=== PATIENT | female | born 1995 | race Caucasian/White ===

== ENCOUNTER → 2019-09-29 | Outpatient (CLI) | payer SELFPAY | END | disposition home or self-care (01) | PROVIDERS: Referring Provider Obstetrics & Gynecology; Visit Provider Obstetrics & Gynecology | DX: Z12.4 Encounter for screening for malignant neoplasm of cervix (principal); Z11.3 Encounter for screening for infections with a predominantly sexual mode of transmission ==

== ENCOUNTER → 2019-10-14 15:22 | Outpatient (CLI) | payer SELFPAY ==
[2019-10-14 17:27] LABS: Color, Urine Yellow (Yellow); Glucose, Dipstick Normal (Normal); Ketone-Dipstick Negative (Negative); Leukocyte Esterase-Dipstick Negative /ul (Negative); Nitrite-Dipstick Negative (Negative); Occult Blood-Urine Negative /ul (Negative); Protein-Dipstick Negative (Negative); Urine Bilirubin Dipstick Negative (Negative); Urine Clarity Sl. Cloudy (Clear); Urine Urobilinogen Normal (Normal)
[2019-10-14 17:29] LABS: Absolute Lymphocyte Count 2.35 X10^3/uL (0.83-4.51); Absolute Neutrophil Count 6.4 X10^3/uL (2.0-7.7); Basophil# 0.05 X10^3/uL; Basophil% 0.5 % (0-1); Eosinophil# 0.04 X10^3/uL; Eosinophils% 0.4 % (0-5); Hematocrit 41.8 % (37-47); Hemoglobin 14.3 g/dL (12.0-15.0); Lymphocyte # 2.35 X10^3/ul (4.0); Lymphocyte % 24.5 % (19-41); Mean Corp Hgb Conc 34.2 g/dL (32-36); Mean Corpuscular Hgb 29.5 pg (27.0-32.0); Mean Corpuscular Volume 86.2 fL (81-99); Mean Platelet Vol. 9.6 fl (6.2-12.0); Monocyte% 7.3 % (0-10); NRBC Flagged by Analyzer 0 % (0-5); Neutrophil # 6.43 X10^3/uL (2.7-7.7); Platelet Count 308 K/mm3 (150-450); RBC Distribution Width CV 12.9 % (11.6-14.6); RBC Distribution Width SD 40.4 fl (35.1-43.9); Red Blood Count 4.85 M/mm3 (4.2-5.4); White Blood Count 9.6 K/mm3 (4.4-11.0)
[2019-10-14 17:52] LABS: Thyroid Stim Hormone (TSH) 1.36 uIU/mL (0.358-3.74)
[2019-10-15 09:55] LABS: HIV - WCH Non-Reactive (Nonreactive); Hepatitis B Surface Antigen Non-Reactive (Nonreactive); Hepatitis C Antibody Non-Reactive (Nonreactive)
[2019-10-15 11:52] LABS: Rubella IgG < 0.2 IU/mL
[2019-10-21 02:23] LABS: Prenatal RPR NONREACTIVE (NONREACTIVE)
== END ==
PROVIDERS: Visit Provider Obstetrics & Gynecology
DX: Z34.81 Encounter for supervision of other normal pregnancy, first trimester (principal)
CPT/HCPCS: 36415; 81002; 84443; 85025; 86703; 86762; 86803; 87340

== ENCOUNTER → 2020-01-06 15:48 | Outpatient (CLI) | payer SELFPAY | PROVIDERS: Visit Provider Obstetrics & Gynecology | DX: O36.5990 Maternal care for other known or suspected poor fetal growth, unspecified trimester, not applicable or unspecified (principal); O41.00X0 Oligohydramnios, unspecified trimester, not applicable or unspecified; Z3A.00 Weeks of gestation of pregnancy not specified | CPT/HCPCS: 36415 ==

== ENCOUNTER → 2020-01-27 10:27 | Outpatient (CLI) | payer SELFPAY ==
[2020-01-27 11:08] LABS: Hematocrit 37.3 % (37-47); Hemoglobin 12.9 g/dL (12.0-15.0); Mean Corp Hgb Conc 34.6 g/dL (32-36); Mean Corpuscular Hgb 31.2 pg (27.0-32.0); Mean Corpuscular Volume 90.3 fL (81-99); Mean Platelet Vol. 10.7 fl (6.2-12.0); Platelet Count 215 K/mm3 (150-450); RBC Distribution Width CV 12.4 % (11.6-14.6); RBC Distribution Width SD 41.1 fl (35.1-43.9); Red Blood Count 4.13 M/mm3 (4.2-5.4); White Blood Count 9.3 K/mm3 (4.4-11.0)
[2020-01-27 11:16] LABS: Creatinine, Urine (random) < 13.00 mg/dL (NO RANGE EST.); Protein, Urine (Random) < 6.0 mg/dL (<11.9)
[2020-01-27 11:27] LABS: ALB/GLOB Ratio 0.8 RATIO (0.9-2.4); AST(SGOT) 24 U/L (15-37); Alanine Aminotransfer ALT/SGPT 37 U/L (13-56); Albumin, Serum 3.1 g/dL (3.2-5.0); Alkaline Phosphatase 68 U/L (45-117); Anion Gap 6 (5-15); BUN 10 mg/dL (7-18); BUN/Creat Ratio 16.8 RATIO (10-20); Calcium,Total 8.8 mg/dL (8.5-10.1); Chloride 105 mmol/L (98-107); EST Glomerular Filtration Rate 130 mL/min (>60); Est Glom Filt Rate - Afr Amer 157 mL/min (>60); Globulin 4.1 g/dL (2.2-4.2); Glucose 75 mg/dL (74-106); LDH 192 U/L (84-246); Potassium 4.2 mmol/L (3.5-5.1); Protein, Total 7.2 g/dL (6.4-8.2); Sodium Level 137 mmol/L (136-145); Uric Acid 5.1 mg/dL (2.6-6.0)
== END ==
PROVIDERS: Visit Provider Obstetrics & Gynecology
DX: O36.5921 Maternal care for other known or suspected poor fetal growth, second trimester, fetus 1 (principal); O26.892 Other specified pregnancy related conditions, second trimester; R03.0 Elevated blood-pressure reading, without diagnosis of hypertension; Z3A.00 Weeks of gestation of pregnancy not specified
CPT/HCPCS: 36415; 80053; 82570; 83615; 84156; 84550; 85027

== ENCOUNTER 2020-02-05 12:54 | Outpatient (CLI) | payer SELFPAY ==
[2020-02-05 12:59] VITALS: BMI 28.5
[2020-02-05 13:23] VITALS: BP 147/78; PULSE 82; PULSE 88; TEMP 37.1; O2SAT 98
--- NOTE | 2020-02-07 20:00 | OB.TRI.PN_ITS ---
Progress Notes Date of Service: 02/05/20 Progress Note: S: Reports not feeling any FM and unable to find FHR at home with doppler O: RN unable to find FHR A/P: at 24 weeks gestation with known severe oligo and IUGR Dr. Chand at bedside to perform US for FHR check, FHR has ceased IUFD confirmed per attending Patient and would like to talk with [facility] about possibly delivering in [place] or in [place] Plans to do full genetic screening To call M office tomorrow with decision made
== END 2020-02-05 14:15 | disposition home or self-care (01) ==
LOC: WPOUT 12:56 → OBT 12:56
PROVIDERS: Visit Provider Obstetrics & Gynecology
DX: O36.4XX0 Maternal care for intrauterine death, not applicable or unspecified (principal); O41.02X0 Oligohydramnios, second trimester, not applicable or unspecified; O36.5920 Maternal care for other known or suspected poor fetal growth, second trimester, not applicable or unspecified; Z3A.24 24 weeks gestation of pregnancy
CPT/HCPCS: 76815; 99218; G0378

== ENCOUNTER 2020-02-09 18:55 | Inpatient (IN) | payer SELFPAY ==
[2020-02-09 19:24] VITALS: BMI 27.8
--- NOTE | 2020-02-09 19:55 | HP.PCM_ITS ---
- Problem List (1) 24 weeks gestation of Status: Acute (2) demise, greater than 22 weeks, antepartum Status: Acute Qualifiers: Fetus number: single or unspecified fetus Qualified Code(s): O36.4XX0 - Maternal care for intrauterine , not applicable or unspecified History Date of Admission: 02/09/20 Final SHERRI: 05/21/20 Final SHERRI Source: US <20 weeks Gestational age: 25 Weeks and 3 Days History of this : This is a 24 year-old, G [1], P [0], at 25.3 weeks gestational age. demise with cessation of heart tones 02-05-20 at 24w6d. Here for IOL. Allergies No Known Allergies Allergy (Verified 02/09/20 19:41) Home Medications: Home Medications Magnesium 30 mg PO DAILY 02/09/20 [place]-3 Fatty Acids [Fish Oil] 500 mg PO DAILY 02/09/20 Pnv No.95/Ferrous Fum/Folic AC [ Multivitamin Tablet] 1 ea PO DAILY 02/09/20 Alcohol: None Number of Fetus(es): 1 History Past Pregnancies: Past Pregnancies: None Labs: 10-13-21: TSH 1.36, A positive with negative ab screen, Rubella <0.2, HIV nonreactive, HEP B nonreactive, HEP C nonreactive, RPR nonreactive 01-06-20 Diagnosis of IUGR with severe Oligo at 3cm, female fetus 01-06-20 MaterniT-21 negative for Trisomy 21, negative for Trisomy 18 and negative for Trisomy 13, indicating male fetus Expected Delivery Method: Spontaneous Vaginal Number of Visits: 6 Review of Systems Constitutional: Denies: Chills, Fever, Weight Change HEENT: Denies: Head Aches, Sinus Congestion, Sinus Drainage Cardiovascular: Denies: Chest Pain, Palpitations Respiratory: Denies: Cough, Shortness of breath at rest, Sputum production Gastrointestinal: Denies: Abdominal Pain, Nausea, Vomiting Genitourinary: Denies: Dysuria Musculoskeletal: Denies: Joint Pain, Joint Tenderness Skin: Denies: Rash, Wounds Neurological: Denies: Numbness, Tingling, Focal weakness Psychiatric: Denies: Anxiety, Depression, Homicidal Ideations, Suicidal Ideations Hematologic/ Lymphatic: Denies: Easy Bruising, Easy Bleeding Physical Exam General: Alert, Oriented x3, No apparent distress HEENT: Atraumatic, Normocephalic. Negative for: Thyromegaly, Lymphadenopathy Cardiovascular: Regular rate, Regular Rhythm Lungs: Clear to auscultation Abdomen: Bowel Sounds Present, Gravid Neurological: Deep Tendon Reflexes 2+/4 and Symmetrical, Neuro grossly intact FARE ENFORCEMENT OFFICER: Normal external genitalia. Negative for: Vulvar lesions Estimated gestational size: Small for gestational age Assessment/Plan All Active Problems 24 weeks gestation of (Acute) demise, greater than 22 weeks, antepartum (Acute) A/P: This is a 24 year-old, G [1], P [0], at 25w3d gestational age with demise at 24w6d confirmed with US performed by Dr. Chand attending MD. IUGR and Oligo dx 6--20, with female appearance on US MaterniT-21 testing indication male fetus is negative for Trisomies 13, 18 and 21 Cytotec 200mcg PO Q6H planned for IOL Pain management as appropriate Planning on full genetic testing on fetus Expect
[2020-02-09 20:14] VITALS: BP 131/79; PULSE 93; TEMP 37.2; O2SAT 100
[2020-02-09 20:32] LABS: Absolute Lymphocyte Count 3.16 X10^3/uL (0.83-4.51); Absolute Neutrophil Count 7.6 X10^3/uL (2.0-7.7); Basophil# 0.04 X10^3/uL; Basophil% 0.3 % (0-1); Eosinophil# 0.04 X10^3/uL; Eosinophils% 0.3 % (0-5); Hematocrit 36.8 % (37-47); Hemoglobin 12.9 g/dL (12.0-15.0); Lymphocyte # 3.16 X10^3/ul (4.0); Lymphocyte % 26.7 % (19-41); Mean Corp Hgb Conc 35.1 g/dL (32-36); Mean Corpuscular Hgb 31.5 pg (27.0-32.0); Mean Corpuscular Volume 89.8 fL (81-99); Mean Platelet Vol. 10.1 fl (6.2-12.0); Monocyte% 7.6 % (0-10); NRBC Flagged by Analyzer 0 % (0-5); Neutrophil # 7.64 X10^3/uL (2.7-7.7); Neutrophil % 64.7 % (47-70); Platelet Count 280 K/mm3 (150-450); RBC Distribution Width SD 39.1 fl (35.1-43.9); White Blood Count 11.8 K/mm3 (4.4-11.0)
[2020-02-09] MEDS: miSOPROStol 200 MCG Tablet PO (20:45)
[2020-02-09 21:47] VITALS: TEMP 37.1
[2020-02-09 21:48] VITALS: BP 140/89; PULSE 100; O2SAT 97
[2020-02-09 22:36] VITALS: BP 131/67; PULSE 98
[2020-02-10] VITALS (43 sets, daily range): BP systolic 106–164; BP diastolic 58–97; PULSE 72–110; TEMP 36.6–38; O2SAT 86–100
--- NOTE | 2020-02-10 | PLAC_PTH ---
PATIENT: MLE YUN LOC: WP U#:[id number] AGE/SX: 24/F ROOM: WP021 RE02/09/[address]: Natacha Mcbride CNM : 1995 BED: 1 DIS: 02/11/2020 SPEC #: [id number] RECD: 02/11/20 08:44 STATUS: CADEN RENandini #: [id number] YANA: 02/10/20 00:[address]: Natacha Mcbride DEPT: SURGICAL PATHOLOGY RECD BY: David March ENTERED: 02/11/20 08:44 SP TYPE: PLACENTA OTHR DR: No Primary Care Phys Tissues: Placenta, NOS Procedures: Surgery Specimen Level V HEADER OPERATION: Vaginal delivery PRE-OP DIAGNOSIS: demise at 25 week gestation TISSUE SUBMITTED: Placenta MICROSCOPIC DIAGNOSIS Weinstein placenta (100 gm): Umbilical cord - trivascular with no inflammation. Placental membranes - mild acute chorionitis and deciduitis. Placental disc - organizing blood clot, increased intraparenchymal fibrin plaques and acute deciduitis. AM:bridget 02/14/20 MICROSCOPIC DESCRIPTION Slides are reviewed. GROSS DESCRIPTION SPECIMEN: PLACENTA / CLINICAL INFORMATION: A. Weight: Not noted B. Gestational Age: 25 weeks C. Sex: Male PLACENTAL WEIGHT (POST FIXATION): 100 gm PLACENTAL DIMENSIONS: 8 x 7 x 2.5 cm PLACENTAL SHAPE: Usual ovoid PLACENTAL WEIGHT FOR GESTATIONAL AGE: Within 10-99th percentile MEMBRANES - Present A. Insertion: Marginal B. Site of rupture from edge: The membranes are fragmented and distance of rupture cannot be identified. A portion of placental tissue is also noted in the area of membrane. C. Color of membrane: Mcgee-mcdaniel D. Abnormalities: None UMBILICAL CORD - Present A. Color: Mcgee-mcdaniel B. Insertion: Marginal C. Length: 23 cm, macerated D. Diameter: 0.9 cm E. Number of vessels: Could not be identified grossly. F. Abnormalities: None PLACENTAL DISC - Present A. Color of surface: Mcgee-mcdaniel B. surface abnormalities: A focal area of submembranous blood clots is noted. C. Maternal cotyledons: Maternal surface is pink-mcgee without obvious cotyledons. D. Attached retro placental clot: No clot E. Cut surface: Dark red and spongy F. Lesions: None G. Separate clot: Absent A section is submitted for Anora studies by Dr. Egan. SECTIONS SUBMITTED: 1. Membrane roll 2. Cord, maternal end, portion of membrane with placental tissue 3. Cord, end inked black 4. Placental disc, and maternal surfaces 5. Placental disc, and maternal surfaces 6. Placental disc, and maternal surfaces Anup 02/11/20 TC:2 CPT: 51050 ADDENDUM ADDENDUM ADDENDUM ADDENDUM ADDENDUM ADDENDUM ADDENDUM ADDENDUM ADDENDUM 03/01/2020 09:26 ADDENDUM 03/09/2020 08:56 ADDENDUM 03/01/2020 09:26 ADDENDUM 03/01/2020 09:26 ADDENDUM 03/01/2020 09:26 ADDENDUM 03/01/2020 09:26 ANORA MICROARRAY CHROMOSOME ANALYSIS WITH PARENTAL SUPPORT RESULT: Maternal cell contamination MICROARRAY RESULT: N/A CLINICAL INTERPRETATION: Maternal cell contamination was detected. Insufficient DNA detected for analysis. Please see complete report in e-charge or EMR ANORA MICROARRAY CHROMOSOME ANALYSIS WITH PARENTAL SUPPORT RESULT: Normal male MICROARRAY RESULT: arr(122)x2,(XY)x1 CLINICAL INTERPRETATION: Normal male result. Please see complete report in e-charge or EMR
[2020-02-10] MEDS: miSOPROStol 200 MCG Tablet PO ×3 (02:45→13:46)
--- NOTE | 2020-02-10 08:36 | PN.OBGYN_ITS ---
Patient Problems: Active and Suspected Problems 24 weeks gestation of (Acute) demise, greater than 22 weeks, antepartum (Acute) Subjective: Doing okay, but just feels numb everywhere. Hasn't really settled in that her baby is gone yet. Mild cramping just started an hour ago and is planning pain medication. Denies any concerns at this time. Objective: VSS. Second dose of Cytotec given and cramping has started. - Physical Exam Vitals/I&O's: Vital Signs Temp Pulse BP Pulse Ox 98.2 F 83 138/88 H 99 02/10/20 07:40 02/10/20 07:40 02/10/20 07:40 02/10/20 07:40 Weight: 66.86 kg Body Mass Index (BMI) 27.8 General: Alert, Oriented x3, Cooperative HEENT: Atraumatic, PERRLA, EOMI, Normocephalic Neck: Supple, No JVD, Negative Carotid Bruits Lungs: Clear to auscultation, Normal air movement Cardiovascular: Regular rate, No murmurs Abdomen: Bowel Sounds Present, Soft, Non Tender Extremities: No edema, Capillary Refill Less than 3 Seconds Skin: No rashes, No breakdown Musculoskeletal: No Tenderness to Palpation of Joints or Extremities Neurological: Cranial nerves II-XII grossly intact Psych/Mental Status: Normal Affect, Appropriate Laboratory Results 02/09/20 20:00: COVID-19 (WILIAM) Negative 02/09/20 20:10: WBC 11.8 H, RBC 4.10 L, Hgb 12.9, Hct 36.8 L, MCV 89.8, MCH 31.5, MCHC 35.1, RDW Std Deviation 39.1, RDW Coeff of Antony 12.0, Plt Count 280, MPV 10.1, Immature Gran % (Auto) 0.400, Neut % (Auto) 64.7, Lymph % (Auto) 26.7, M[place]inley % (Auto) 7.6, Eos % (Auto) 0.3, Baso % (Auto) 0.3, Absolute Neuts (auto) 7.6, Absolute Lymphs (auto) 3.16, Nucleated RBC % 0 02/09/20 20:10: Blood Type A POSITIVE, Antibody Screen NEGATIVE Current Medications Acetaminophen (Tylenol) 325 - 650 mg PO Q4H PRN PRN PRN Reason: Pain Score 1-3/10 Al Hydroxide/Mg Hydroxide (Mylanta Ii) 15 - 30 ml PO Q4H PRN PRN PRN Reason: INDIGESTION Citric Acid/Sodium Citrate (Bicitra) 30 ml PO X1 PRN PRN Reason: Section Fentanyl Citrate (Sublimaze (100mcg Ampule)) 25 - 50 mcg IV Q2H PRN PRN PRN Reason: Pain Score 4-10/10 Lactated Ringer's () 500 mls @ 999 mls/hr IV .Q31M PRN PRN Reason: Epidural Lactated Ringer's () 500 mls @ 999 mls/hr IV .Q31M PRN PRN Reason: Corrective Measures Lactated Ringer's () 1,000 mls @ 50 mls/hr IV .Q20H SOL Last Admin: 02/09/20 21:43 Dose: Not Given Documented by: Misoprostol (Cytotec) 200 mcg PO Q6H SOL Ondansetron HCl (Zofran) 4 mg IV Q4H PRN PRN PRN Reason: NAUSEA Prochlorperazine Edisylate (Compazine Iv) 10 mg IV Q6H PRN PRN PRN Reason: NAUSEA Sodium Chloride () 10 - 40 ml IV X1 PRN PRN Reason: SALINE FLUSH Medical Necessity - Tobacco Use Smoking Status: Never smoker Assessment/Plan All Active Problems 24 weeks gestation of (Acute) demise, greater than 22 weeks, antepartum (Acute) A/P: IOL with Cytotec for IUFD at bedside and couple is tolerating well, emotional support given Discussion on genetic testing on baby that is offered as well as autopsy and placenta can be sent To eat breakfast and will get third dose of Cytotec Plans IV pain medication or epidural when painful Expect
[2020-02-10] MEDS: 0.9% Saline Lock 10 ML Syringe IV ×2 (13:46→22:47)
[2020-02-10] MEDS: Acetaminophen 325 MG Tablet PO (14:17)
--- NOTE | 2020-02-10 16:17 | PCM.PN.OB ---
Patient Problems: Active and Suspected Problems 24 weeks gestation of (Acute) demise, greater than 22 weeks, antepartum (Acute) Subjective: Cramping is a 2/10, but okay with Tylenol and a heating pad. Almost continuous cramps, can't tell if having contractions or not. Objective: VSS. - Physical Exam Vitals/I&O's: Vital Signs Temp Pulse BP Pulse Ox 98.4 F 80 141/83 H 98 02/10/20 15:39 02/10/20 15:39 02/10/20 15:38 02/10/20 15:39 Weight: 66.86 kg Body Mass Index (BMI) 27.8 General: Alert, Oriented x3, Cooperative HEENT: Atraumatic, PERRLA, EOMI, Normocephalic Neck: Supple, No JVD, Negative Carotid Bruits Lungs: Clear to auscultation, Normal air movement Cardiovascular: Regular rate, No murmurs Abdomen: Bowel Sounds Present, Soft, Non Tender Extremities: No edema, Capillary Refill Less than 3 Seconds Skin: No rashes, No breakdown Musculoskeletal: No Tenderness to Palpation of Joints or Extremities Neurological: Cranial nerves II-XII grossly intact Psych/Mental Status: Normal Affect, Appropriate Laboratory Results 02/09/20 20:00: COVID-19 ([facility]ILIAM) Negative 02/09/20 20:10: WBC 11.8 H, RBC 4.10 L, Hgb 12.9, Hct 36.8 L, MCV 89.8, MCH 31.5, MCHC 35.1, RDW Std Deviation 39.1, RDW Coeff of Antony 12.0, Plt Count 280, MPV 10.1, Immature Gran % (Auto) 0.400, Neut % (Auto) 64.7, Lymph % (Auto) 26.7, [place] % (Auto) 7.6, Eos % (Auto) 0.3, Baso % (Auto) 0.3, Absolute Neuts (auto) 7.6, Absolute Lymphs (auto) 3.16, Nucleated RBC % 0 02/09/20 20:10: Blood Type A POSITIVE, Antibody Screen NEGATIVE Current Medications Acetaminophen (Tylenol) 325 - 650 mg PO Q4H PRN PRN PRN Reason: Pain Score 1-3/10 Last Admin: 02/10/20 14:17 Dose: 650 mg Documented by: Al Hydroxide/Mg Hydroxide (Mylanta Ii) 15 - 30 ml PO Q4H PRN PRN PRN Reason: INDIGESTION Citric Acid/Sodium Citrate (Bicitra) 30 ml PO X1 PRN PRN Reason: Section Fentanyl Citrate (Sublimaze (100mcg Ampule)) 25 - 50 mcg IV Q2H PRN PRN PRN Reason: Pain Score 4-10/10 Lactated Ringer's () 500 mls @ 999 mls/hr IV .Q31M PRN PRN Reason: Epidural Lactated Ringer's () 500 mls @ 999 mls/hr IV .Q31M PRN PRN Reason: Corrective Measures Lactated Ringer's () 1,000 mls @ 50 mls/hr IV .Q20H [facility] Last Admin: 02/09/20 21:43 Dose: Not Given Documented by: Misoprostol (Cytotec) 200 mcg PO Q4H [facility] Last Admin: 02/10/20 13:46 Dose: 200 mcg Documented by: Ondansetron HCl (Zofran) 4 mg IV Q4H PRN PRN PRN Reason: NAUSEA Prochlorperazine Edisylate (Compazine Iv) 10 mg IV Q6H PRN PRN PRN Reason: NAUSEA Sodium Chloride () 10 - 40 ml IV X1 PRN PRN Reason: SALINE FLUSH Last Admin: 02/10/20 13:46 Dose: 10 ml Documented by: Medical Necessity - Tobacco Use Smoking Status: Never smoker Assessment/Plan All Active Problems 24 weeks gestation of (Acute) demise, greater than 22 weeks, antepartum (Acute) A/P: 1/thick/high tunneling about 40% Cramping 2/10 pain Understands all pain management options available Cytotec 200mcg Q4H, patient to decide if wanting to go up to 400mcg
[2020-02-10] MEDS: Lactated Ringers 500 ML 999 ML IV (16:33)
[2020-02-10] MEDS: Lactated Ringers 1,000 ML 50 ML IV (17:04)
[2020-02-10] MEDS: fentaNYL-bupivacaine (epidural) 100 ML BAG EPIDURAL (17:37)
[2020-02-10] MEDS: miSOPROStol 200 MCG Tablet 400 MCG VAGINAL (17:50)
--- NOTE | 2020-02-10 21:36 | OP.PCM_ITS ---
Problem List (1) 24 weeks gestation of Status: Acute (2) demise, greater than 22 weeks, antepartum Status: Acute Qualifiers: Fetus number: single or unspecified fetus Qualified Code(s): O36.4XX0 - Maternal care for intrauterine , not applicable or unspecified Vaginal Delivery Maternal Presentation: Medically Indicated Induction Presented for IOL for IUFD Method of Induction: Cytotec Medical Reason for Induction: demise Amniotic Membrane Rupture Type: - - after delivery Final SHERRI: 05/21/20 Final SHERRI Source: US <20 weeks Gestational age: 25 Weeks and 4 Days Date of Procedure: 02/10/20 Pre-Operative Diagnosis: IOL for demise Post-Operative Diagnosis: S/P Vaginal Delivery Surgery/ Procedure Performed: Spontaneous Vaginal Delivery Anesthesiologist: Kika Dixon Type of Anesthesia: Epidural Description of Procedure: At 210 typewriter operator automatic received a call from RN that upon assessment of patient's vaginal bleeding, head was starting to deliver. Upon arrival, gestational sac at the introitus. With one push, fetus was delivered in the gestational sac. Manual removal of two small clots from uterus which firmed well. Patient and request that typewriter operator automatic remove from gestational sac for sac to be sent to pathology for Anora testing. Using tweezers, slight tear made in the sac which peeled easily to reveal a male fetus with umbilical cord attached. Umbilical cord cut from fetus to send placenta with cord intact to lab. Male fetus inspected on a baby powdered blanket, hat placed and wrapped in swaddle provided by couple. Fetus handed to patient in bed. Patient still comfortable with epidural in and will recover with baby before discharge. EBL <50mL Presentation: Vertex Placental Delivery Description: Spontaneous Placenta Disposition: Sent to Pathology Cord Entanglement: None Estimated Blood Loss: 50 Infant A gender: Male Episiotomy Description: None Laceration: None
--- NOTE | 2020-02-10 21:53 | DCINST_ITS ---
Discharge Diet: No Restrictions Discharge Activity: Return to Normal Activity, May not drive while taking narcotic pain medications., May Shower May resume sexual activity in: 4-6 weeks Additional Activity Instructions:: Nothing in the vagina for 4-6 weeks. You may return to work/school in 6 weeks. Call your doctor if your incision/area has: Continuous Slow Oozing, Sudden Increased Bleeding, Increased Pain/ Swelling, Increased Redness, Foul Smelling Discharge Additional Instructions: If you experience any of the following, contact your healthcare provider. * Bleeding that soaks a pad every hour for 2 hours * Fever 100.4 or higher * Unrelieved incision or abdominal pain * Swelling, redness, discharge or bleeding from your incision or episiotomy site * Your incision begins to separate * Problems urinating (including inability to urinate or burning while urinating). * Visual changes * Severe headache * Flu-like symptoms * Pain or redness in one of both of your breasts * Pain, warmth, tenderness or swelling in your legs, especially the calf area * Frequent nausea and vomiting * Symptoms of depression or anxiety If you experience any of the following, call 911 or go to the nearest Emergency Room. * Chest pain * Problems breathing * Seizure activity * Partial or complete paralysis of a body part, slurred speech, weakness or drooping of the face, or a sudden inability to walk or hold your balance Allergies/Adverse Reactions: Allergies No Known Allergies Allergy (Verified 02/09/20 19:41) Medications to take at Discharge Magnesium 30 mg PO DAILY 02/09/20 [place]-3 Fatty Acids [Fish Oil] 500 mg PO DAILY 02/09/20 Pnv No.95/Ferrous Fum/Folic AC [ Multivitamin Tablet] 1 ea PO DAILY 02/09/20 Please Follow Up With: Natacha Mcbride CNM When: Call to make an appointment with your CNM for a 2 week telehealth visit and a routine 6 week visit. If signs of depression to call immediately! Primary Care Physician: Care Physician,No Primary [Primary Care Provider] - Test Results: Test results from this visit will be discussed in further detail at your follow- up appointment, if applicable.
[2020-02-10] MEDS: Ibuprofen 600 MG Tablet PO (23:04)
[2020-02-11] VITALS (10 sets, daily range): BP systolic 123–141; BP diastolic 70–84; PULSE 78–94; RESP 16; TEMP 36.6–36.8; O2SAT 95–99
--- NOTE | 2020-02-11 03:26 | NURSING ---
Infant weight 8 ounces or 0.225 kg and 9.5 in long
--- NOTE | 2020-02-11 03:38 | NURSING ---
Patient aware that she is non immune to Rubella. Patient declines MMR vaccine at this time.
[2020-02-11] MEDS: Ibuprofen 600 MG Tablet PO (07:55)
--- NOTE | 2020-02-11 08:32 | PCM.PN.OB ---
Patient Problems: Active and Suspected Problems 24 weeks gestation of (Acute) demise, greater than 22 weeks, antepartum (Acute) Subjective: Is doing fairly well today. Getting in last minute cuddles with the baby before the home comes. Feeling well physically and denies heavy bleeding or cramping. Will discharge late this morning. Objective: VSS. Fundus is firm, midline, u/3. Lochia rubra light. - Physical Exam Vitals/I&O's: Vital Signs Temp Pulse Resp BP Pulse Ox 98.1 F 88 16 128/84 H 99 02/11/20 07:57 02/11/20 07:57 02/11/20 07:57 02/11/20 07:57 02/11/20 07:57 Oxygen Delivery Method Room Air Weight: 66.86 kg Body Mass Index (BMI) 27.8 Intake and Output for Last 24 Hours 02/09/20 02/10/20 02/11/20 23:59 23:59 23:59 Intake Total 2077.50 / 2077.50 Output Total 2300 / 2300 1700 / 1700 Balance -222.50 / -222.50 -1700 / -1700 General: Alert, Oriented x3, Cooperative HEENT: Atraumatic, PERRLA, EOMI, Normocephalic Neck: Supple, No JVD, Negative Carotid Bruits Lungs: Clear to auscultation, Normal air movement Cardiovascular: Regular rate, No murmurs Abdomen: Bowel Sounds Present, Soft, Non Tender Extremities: No edema, Capillary Refill Less than 3 Seconds Skin: No rashes, No breakdown Musculoskeletal: No Tenderness to Palpation of Joints or Extremities Neurological: Cranial nerves II-XII grossly intact Psych/Mental Status: Normal Affect, Appropriate Current Medications Acetaminophen (Tylenol) 1,000 mg PO Q8H PRN PRN PRN Reason: Pain Score 1-3/10 Bisacodyl (Dulcolax) 10 mg RECTAL UD PRN PRN Reason: If no BM Dibucaine (Dibucaine) 1 applic TOPICAL TID PRN PRN; Protocol PRN Reason: Discomfort Hydrocortisone (Hytone) 1 applic TOPICAL TID PRN PRN; Protocol PRN Reason: Discomfort Ibuprofen (Motrin) 600 mg PO Q6H PRN PRN PRN Reason: Pain Score 1-3/10 Last Admin: 02/11/20 07:55 Dose: 600 mg Documented by: Methylergonovine Maleate (Methergine) 0.2 mg IM X1 PRN PRN Reason: Excess bleeding/uterine atony Ondansetron HCl (Zofran) 4 mg IV Q4H PRN PRN PRN Reason: Nausea Oxycodone HCl (Oxyir) 5 - 10 mg PO Q4H PRN PRN PRN Reason: Pain Score 4-10/10 Senna/Docusate Sodium (Senokot-S, Ele-Colace) 1 - 2 tablet PO DAILY PRN PRN PRN Reason: Constipation Simethicone (Mylicon) 80 mg PO PCHS PRN PRN Reason: Indigestion/Stomach pain Sodium Chloride () 5 - 15 ml IV UD PRN PRN Reason: SALINE FLUSH Last Admin: 02/10/20 22:47 Dose: 10 ml Documented by: Medical Necessity - Tobacco Use Smoking Status: Never smoker Assessment/Plan All Active Problems 24 weeks gestation of (Acute) demise, greater than 22 weeks, antepartum (Acute) A/P: S/P vaginal delivery day #1 of male IUFD Normal involution and lochia Emotional support given Stable to discharge later this morning Understands to call CNM with any signs of depression Educated on lochia, return of menses/ovulation, milk coming in/engorgement, and support groups for moms of loss To schedule 2 week telehealth appt and 6 week routine appt
--- NOTE | 2020-02-11 10:07 | NURSING ---
Parents requesting [facility] home to be called to pickling operator baby at this time. Harley Stearns RN called home and mother is going to shower at this time while they wait. SD card for pictures given to parents.
--- NOTE | 2020-02-11 10:10 | NURSING ---
0930-Zachary's parents are here for support and to see at this time.
--- NOTE | 2020-02-11 10:29 | CASEMGMT ---
Social Work Brief Assessment Labor and Delivery Unit Patient Address: [address] [place] [address], [place] [address] Phone number: [phone] Date of Referral/Notification: 02.11.2020 Time of Referral: 27 Referred By: Natacha Mcbride CNM Reason for Referral: demise, 25 weeks and 4 days Date of Intervention: 02.11.2020 Time of Intervention: 944 Informant: Medical record, patient/mother of baby (MOB) Paula Gupta, and father of baby (FOB) Zachary Gupta History: BRANNON is a 24 year old female, to Zachary Gupta for 5 years. MOB is G1, P0 to 1 after delivering a 25 week 4 day gestational age baby boy, at time of . Baby is being named Adeel Gupta. JASON works as truck driver helper, and BRANNON was working until she realized there was some need to focus on self care in order to try and protect as long as possible. MOB and FOB deny any history of depression or emotional health issues. Assessment: Met with MOB and FOB in room together, both receptive and engaged in conversation. BRANNON teary eyed a few times and admits has had some moments when she has been having a hard time. MOB and FOB report to have a good support system, and that family has been pulling together for the last week to help with meals and even to help plan a memorial service for the baby. Parents report the plan for Adeel to be buried in the same cemetery as JASON's grandfather. FOB will be home this week and reports since COVID work hours have been reduced, so will likely be home frequently with BRANNON. BRANNON reports she is able to talk most freely with FOB and MOB's mom, so this is helpful. Touched on stages of grief and importance of self care. Provided parents with information related to parents and grief, coping skills, local and online resources for grief support. Parents accepting of information and thanked this telegraphic typewriter installer for stopping in. Emotional support and reflection offered this date, validated and normalized thoughts and feelings as common reactions to loss. Plan: BRANNON will discharge home with FOB, with extended family support available. parent have chosen a home and will be planning a service for the baby. No further needs requested or indicated. -DONTRELL Shepherd, ORTEGA
[2020-02-14 14:47] LABS: Pathology Specimen OB SEE PATHOLOGY REPORT
== END 2020-02-11 10:45 | disposition home or self-care (01) | DRG 806 ==
PROVIDERS: Admitting Provider Obstetrics & Gynecology; Visit Provider Obstetrics & Gynecology
DX: O36.4XX0 Maternal care for intrauterine death, not applicable or unspecified (principal); O41.02X0 Oligohydramnios, second trimester, not applicable or unspecified; Z37.1 Single stillbirth; O36.5920 Maternal care for other known or suspected poor fetal growth, second trimester, not applicable or unspecified; Z3A.24 24 weeks gestation of pregnancy
CPT/HCPCS: 59050; 85025; 86850; 86900; 86901; 87635; 88307; 99218; G2023; J7120; A4216; G0378; U0003

== ENCOUNTER → 2020-12-07 09:58 | Outpatient (CLI) | payer SELFPAY ==
[2020-12-07 09:10] VITALS: BMI 28.5
[2020-12-07 10:30] LABS: Absolute Lymphocyte Count 2.69 X10^3/uL (0.83-4.51); Absolute Neutrophil Count 6.5 X10^3/uL (2.0-7.7); Basophil# 0.05 X10^3/uL; Basophil% 0.5 % (0-1); Eosinophil# 0.05 X10^3/uL; Eosinophils% 0.5 % (0-5); Hematocrit 40.6 % (37-47); Hemoglobin 13.9 g/dL (12.0-15.0); Lymphocyte # 2.69 X10^3/ul (0.83-4.51); Lymphocyte % 26.5 % (19-41); Mean Corp Hgb Conc 34.2 g/dL (32-36); Mean Corpuscular Hgb 29.9 pg (27.0-32.0); Mean Corpuscular Volume 87.3 fL (81-99); Mean Platelet Vol. 8.7 fl (6.2-12.0); Monocyte# 0.86 X10^3/uL; Monocyte% 8.5 % (0-10); NRBC Flagged by Analyzer 0 % (0-5); Neutrophil # 6.47 X10^3/uL (2.7-7.7); Neutrophil % 63.6 % (47-70); Platelet Count 262 K/mm3 (150-450); RBC Distribution Width CV 12.4 % (11.6-14.6); RBC Distribution Width SD 39.7 fl (35.1-43.9); Red Blood Count 4.65 M/mm3 (4.2-5.4); White Blood Count 10.2 K/mm3 (4.4-11.0)
[2020-12-07 11:24] LABS: hCG Titer Quant., Serum 26027 mIU/mL (1-3)
[2020-12-09 03:07] LABS: Dilute Prothrombin Time (dPT) 32.2 sec (0.0-55.0); Dilute Russell Viper Venom 39.8 sec (0.0-47.0); PTT-LA 37.8 sec (0.0-51.9); Thrombin Time 16.4 sec (0.0-23.0); dPT Confirm Ratio 1.06 Ratio (0.00-1.40)
[2020-12-09 11:02] LABS: Anti-Cardiolipin Ab, IgA, Qn < 9 APL U/mL (0-11); Anti-Cardiolipin Ab, IgG, Qn < 9 GPL U/mL (0-14); Anti-Cardiolipin Ab, IgM, Qn 16 MPL U/mL (0-12); Beta-2-Glycoprotein I IgA <9 (0-25); Beta-2-Glycoprotein I IgG <9 (0-20); Beta-2-Glycoprotein I IgM <9 (0-32); Interpretation Comment: (.)
== END ==
PROVIDERS: Referring Provider Obstetrics & Gynecology; Visit Provider Obstetrics & Gynecology
DX: O03.9 Complete or unspecified spontaneous abortion without complication (principal); O26.20 Pregnancy care for patient with recurrent pregnancy loss, unspecified trimester; Z3A.00 Weeks of gestation of pregnancy not specified
CPT/HCPCS: 36415; 84702; 85025; 86146; 86147; 86850; 86900; 86901

== ENCOUNTER → 2020-12-09 10:32 | Outpatient (CLI) | payer SELFPAY ==
[2020-12-07 09:10] VITALS: BMI 28.5
== END ==
PROVIDERS: Visit Provider Obstetrics & Gynecology
DX: O03.9 Complete or unspecified spontaneous abortion without complication (principal)
CPT/HCPCS: 36415; 84702

== ENCOUNTER → 2021-03-02 09:34 | Outpatient (CLI) | payer SELFPAY ==
[2020-12-28 15:05] VITALS: BMI 28.9
[2021-03-02 10:06] LABS: hCG Titer Quant., Serum 24 mIU/mL (1-3)
== END ==
PROVIDERS: Referring Provider Obstetrics & Gynecology; Visit Provider Obstetrics & Gynecology
DX: N91.2 Amenorrhea, unspecified (principal)
CPT/HCPCS: 36415; 84702

== ENCOUNTER → 2021-03-04 14:17 | Outpatient (CLI) | payer SELFPAY ==
[2020-12-28 15:05] VITALS: BMI 28.9
[2021-03-04 15:23] LABS: hCG Titer Quant., Serum 85 mIU/mL (1-3)
== END ==
PROVIDERS: Referring Provider Obstetrics & Gynecology; Visit Provider Obstetrics & Gynecology
DX: N91.2 Amenorrhea, unspecified (principal)
CPT/HCPCS: 84702

== ENCOUNTER → 2021-03-20 | Outpatient (CLI) | payer SELFPAY ==
[2021-03-20 16:10] VITALS: BMI 28.9
== END | disposition home or self-care (01) ==
PROVIDERS: Referring Provider Obstetrics & Gynecology; Visit Provider Obstetrics & Gynecology
DX: Z34.90 Encounter for supervision of normal pregnancy, unspecified, unspecified trimester (principal)
CPT/HCPCS: 87086; 87088

== ENCOUNTER → 2021-04-26 14:38 | Outpatient (CLI) | payer SELFPAY ==
[2021-05-01 15:08] LABS: Dilute Russell Viper Venom 38.2 sec (0.0-47.0); PTT-LA 39.8 sec (0.0-51.9); Thrombin Time 17.7 sec (0.0-23.0)
[2021-05-01 16:08] LABS: Anti-Cardiolipin Ab, IgA, Qn < 9 APL U/mL (0-11); Anti-Cardiolipin Ab, IgG, Qn < 9 GPL U/mL (0-14); Anti-Cardiolipin Ab, IgM, Qn 12 MPL U/mL (0-12); Beta-2-Glycoprotein I IgA <9 (0-25); Beta-2-Glycoprotein I IgG <9 (0-20); Beta-2-Glycoprotein I IgM <9 (0-32); Dilute Prothrombin Time (dPT) 29.2 sec (0.0-55.0); Interpretation Comment: (.); dPT Confirm Ratio 1.46 Ratio (0.00-1.40)
[2021-05-25 15:47] LABS: Absolute Neutrophil Count 8.2 X10^3/uL (2.0-7.7); Basophil# 0.04 X10^3/uL; Basophil% 0.3 % (0-1); Eosinophil# 0.07 X10^3/uL; Eosinophils% 0.6 % (0-5); Hematocrit 37.5 % (37-47); Hemoglobin 13.3 g/dL (12.0-15.0); Lymphocyte % 20.5 % (19-41); Mean Corp Hgb Conc 35.5 g/dL (32-36); Mean Corpuscular Hgb 30.8 pg (27.0-32.0); Mean Corpuscular Volume 86.8 fL (81-99); Mean Platelet Vol. 9.2 fl (6.2-12.0); Monocyte% 7.7 % (0-10); NRBC Flagged by Analyzer 0 % (0-5); Neutrophil # 8.17 X10^3/uL (2.7-7.7); Neutrophil % 69.9 % (47-70); Platelet Count 280 K/mm3 (150-450); RBC Distribution Width CV 13.8 % (11.6-14.6); RBC Distribution Width SD 42.9 fl (35.1-43.9); Red Blood Count 4.32 M/mm3 (4.2-5.4); White Blood Count 11.7 K/mm3 (4.4-11.0)
[2021-05-28 07:35] LABS: Rubella IgG Non-Reactive (Nonreactive)
== END ==
PROVIDERS: Obstetrics & Gynecology; Referring Provider Obstetrics & Gynecology; Visit Provider Obstetrics & Gynecology
DX: N96 Recurrent pregnancy loss (principal)
CPT/HCPCS: 36415; 85025; 86146; 86147; 86762; 86850; 86900; 86901

== ENCOUNTER → 2021-05-25 14:35 | Outpatient (CLI) | payer SELFPAY | PROVIDERS: Referring Provider Obstetrics & Gynecology; Visit Provider Obstetrics & Gynecology | DX: R69 Illness, unspecified (principal) ==

== ENCOUNTER → 2021-07-23 12:47 | Outpatient (CLI) | payer SELFPAY ==
--- NOTE | 2021-07-23 12:51 | US_ITS ---
STUDY: SECOND AND THIRD TRIMESTER OBSTETRICAL ULTRASOUND - LIMITED REASON FOR EXAM: Female, 25 years old growth LMP: 01/30/2021. PRIOR ULTRASOUND: None. TECHNIQUE: Transabdominal TECHNICAL QUALITY: Adequate. FINDINGS: There is a single intrauterine fetus. The fetus is in a cephalic presentation. There is demonstrated cardiac activity with a heart rate of 160 bpm. There is a normal amniotic fluid volume. The largest amniotic fluid pocket measures 5 cm. The amniotic fluid index (SABI) is 15.34 cm. The placenta is posterior in location and is not low lying. There are Grade 0 placental changes. The cervix measures 3.6 cm in length. BIOMETRY: BPD: 5.81 cm: 23 weeks, 5 days HC: 21.5 cm: 23 weeks, 3 days AC: 19 cm: 23 weeks, 4 days FL: 3.95 cm: 22 weeks, 5 days Age by LMP: 24 weeks, 6 days. SHERRI by LMP: 11/06/2021. age by current US: 23 weeks, 3 days. SHERRI by current US: 11/16/2021. Estimated weight: 591 grams, +/- 89 grams, 4 percentile. US/OB Limited With Biometrics IMPRESSION: Single live uterine gestation with a mean gestational age of 23 weeks and 3 days. The weight is in the 4th percentile. Electronically Signed: Jose A Nicole MD at 14:53 EST , Service support ,
== END ==
PROVIDERS: Referring Provider Obstetrics & Gynecology; Visit Provider Obstetrics & Gynecology
DX: O09.292 Supervision of pregnancy with other poor reproductive or obstetric history, second trimester (principal); O99.112 Other diseases of the blood and blood-forming organs and certain disorders involving the immune mechanism complicating pregnancy, second trimester; D68.61 Antiphospholipid syndrome; Z3A.23 23 weeks gestation of pregnancy
CPT/HCPCS: 76816

== ENCOUNTER → 2021-07-25 14:49 | Outpatient (CLI) | payer SELFPAY ==
[2021-07-27 09:07] LABS: CMV Acute Antibody IgM < 30.0 AU/mL (0.0-29.9); CMV Antibody IgG > 10.00 U/mL (0.00-0.59); HSV 1 IgG 6.15 index (0.00-0.90); HSV 2 IgG < 0.91 index (0.00-0.90); Toxoplasma Gondii IgG < 3.0 IU/mL (0.0-7.1); Toxoplasma Gondii IgM < 3.0 AU/mL (0.0-7.9)
== END ==
PROVIDERS: Referring Provider Obstetrics & Gynecology; Visit Provider Obstetrics & Gynecology
DX: O09.292 Supervision of pregnancy with other poor reproductive or obstetric history, second trimester (principal); O99.112 Other diseases of the blood and blood-forming organs and certain disorders involving the immune mechanism complicating pregnancy, second trimester; D68.61 Antiphospholipid syndrome; Z3A.00 Weeks of gestation of pregnancy not specified
CPT/HCPCS: 36415; 86644; 86645; 86695; 86696; 86777; 86778